=== PATIENT | female | born 1935 | race Caucasian/White ===

== ENCOUNTER 2017-12-20 21:49 | Emergency (ER) | payer OTHER ==
[~2017-12-20] VITALS: Ht 165.1 cm; Wt 93.0 kg
[~2017-12-20 21:49] MED LIST: ASPI81EC PO; ATOR10 PO; Avelox400 MG PO; CHOL10002 PO; CLON.5 PO; Calcium + Vita1 EACH PO; ENAL2.5 PO; ESOM20 PO; LEVSOD125 PO; MULVITA PO; Melatonin5 M1 PO; NEBI5 PO; Norco 5-325 Ta1 EACH PO; Pravastatin Sod40 MG PO; RABE20 PO; VITAMIN C PO; Vivelle-Dot1 EAC1 TD; Zofran Odt4 MG SL
[2017-12-20] MEDS ORDERED: Keflex500 MG PO (23:22)
== END 2017-12-21 00:37 | disposition home or self-care (01) ==
LOC: ER 21:49
DX: R04.0 Epistaxis (principal); Z88.5 Allergy status to narcotic agent; Z88.8 Allergy status to other drugs, medicaments and biological substances; Z79.899 Other long term (current) drug therapy; Z79.82 Long term (current) use of aspirin; Z79.2 Long term (current) use of antibiotics; E03.9 Hypothyroidism, unspecified; E78.00 Pure hypercholesterolemia, unspecified; F41.9 Anxiety disorder, unspecified
CPT/HCPCS: 30903; 96374; 99283; J0360

== ENCOUNTER 2018-02-13 11:28 | Day surgery (SDC) | payer OTHER ==
[~2018-02-13] VITALS: Ht 160 cm; Wt 93.9 kg
[~2018-02-13 11:28] MED LIST changes: +Keflex500 MG PO
[2018-02-13] MEDS ORDERED: RABE20 (11:48)
[2018-02-13] MEDS ORDERED: LEVSOD125 (11:49)
== END 2018-02-13 14:50 | disposition home or self-care (01) ==
LOC: ORSCSDS 11:28
PROVIDERS: Obstetrics & Gynecology Gynecology
PROC: 0UB98ZX Excision of Uterus, Via Natural or Artificial Opening Endoscopic, Diagnostic (ICD-10-PCS; principal; 2018-02-13 13:00)
PROC: 0UDB7ZX Extraction of Endometrium, Via Natural or Artificial Opening, Diagnostic (ICD-10-PCS; principal; 2018-02-13 13:00)
DX: N95.0 Postmenopausal bleeding (principal); N84.0 Polyp of corpus uteri; I10 Essential (primary) hypertension; E03.9 Hypothyroidism, unspecified; E66.01 Morbid (severe) obesity due to excess calories; Z68.36 Body mass index [BMI] 36.0-36.9, adult; Z79.899 Other long term (current) drug therapy
CPT/HCPCS: 88305; J0690; J3010; J7120

== ENCOUNTER → 2019-08-14 | Outpatient (CLI) | payer OTHER ==
[~2019-08-14] MED LIST changes: +LEVSOD125; +RABE20
[2019-08-16 16:07] LABS: HPV 16 Negative (Negative); HPV 18 Negative (Negative); HPV OTHER HR TYPES Negative (Negative)
== END ==
LOC: LAB 18:51 → LAB SHORT 18:51
PROVIDERS: Obstetrics & Gynecology Gynecology
DX: Z91.89 Other specified personal risk factors, not elsewhere classified (principal)
CPT/HCPCS: 87624; G0123

== ENCOUNTER 2019-12-16 14:04 | Emergency (ER) | payer OTHER ==
[~2019-12-16] VITALS: Ht 160 cm; Wt 91.6 kg
[2019-12-16 14:52] LABS: BASOPHILS ABSOLUTE AUTO 0.04 K/mm3 (0.00-0.23); BASOPHILS PERCENT AUTO 1 % (0-2); EOSINOPHILS ABSOLUTE AUTO 0.01 K/mm3 (0.00-0.68); EOSINOPHILS PERCENT AUTO 0 % (0-6); Hemoglobin 13.8 g/dL (11.5-16.0); IMMATURE GRAN ABSOLUTE AUTO 0.01 K/mm3 (0.00-0.10); IMMATURE GRAN PERCENT AUTO 0 % (0-1); LYMPHOCYTES ABSOLUTE AUTO 2.18 K/mm3 (0.84-5.20); LYMPHOCYTES PERCENT AUTO 31 % (21-46); MONOCYTES ABSOLUTE AUTO 0.83 K/mm3 (0.16-1.47); MONOCYTES PERCENT AUTO 12 % (4-13); Mean Corpuscular HGB 27.5 pg (26.0-34.0); Mean Corpuscular HGB Conc 32.1 g/dL (31.5-36.5); Mean Corpuscular Volume 86 fL (80-100); Mean Platelet Volume 9.9 fL (9.1-12.4); NEUTROPHILS ABSOLUTE AUTO 3.97 K/mm3 (1.96-9.15); NEUTROPHILS PERCENT AUTO 56 % (41-73); Platelet Count 237 K/mm3 (150-400); RDW Coefficient Variation 14.5 % (11.7-14.2); RDW Standard Deviation 45.6 fL (35.1-46.3); Red Blood Cell Count 5.02 M/mm3 (3.80-5.20); White Blood Cell Count 7.04 K/mm3 (4.00-11.30)
[2019-12-16 15:07] LABS: Alanine Aminotransfer (ALT/SGP 29 U/L (12-78); Albumin, Blood 3.4 g/dL (3.4-5.0); Albumin/Globulin Ratio 0.9 (0.8-1.8); Alk Phos 112 U/L (50-136); Anion Gap 4 mmol/L (6-16); Aspartate Aminotrans (AST/SGOT 41 U/L (12-37); Bilirubin, Total 0.4 mg/dL (0.1-1.0); Blood Urea Nitrogen 11 mg/dL (8-24); Bun/Creatinine Ratio 15.9 (12.0-20.0); CO2, Blood 27 mmol/L (21-32); Calcium, Blood 8.9 mg/dL (8.5-10.1); Chloride, Blood 108 mmol/L (98-108); Creatinine, Blood 0.69 mg/dL (0.40-1.00); Globulin, Blood 3.9 g/dL (2.2-4.0); Glomerular Filtration Rate >60 (60-); Glucose, Blood 108 mg/dL (70-99); Potassium, Blood 3.9 mmol/L (3.5-5.5); Sodium, Blood 139 mmol/L (136-145); Total Protein, Blood 7.3 g/dL (6.4-8.2); Troponin I <0.015 ng/mL (0.000-0.040)
== END 2019-12-16 15:35 | disposition home or self-care (01) ==
LOC: ER 14:04
PROVIDERS: Emergency Medicine
DX: M54.6 Pain in thoracic spine (principal); E03.9 Hypothyroidism, unspecified; F41.9 Anxiety disorder, unspecified; Z88.5 Allergy status to narcotic agent; Z91.018 Allergy to other foods; Z79.899 Other long term (current) drug therapy
CPT/HCPCS: 71045; 80053; 84484; 85025; 93005; 93010; 99284-25

== ENCOUNTER → 2023-02-06 | Outpatient (CLI) | payer OTHER ==
[~2023-02-06] MED LIST changes: +Acetaminophen650 M1 PO; +Aspir 8181 MG PO; +CARV3.125 PO; +DICY20 PO; +EUTHYROX125 MCG PO; +FAMO20 PO; +MELATONIN5 M1 PO; +MERIBIN5 MG PO; +METAMUCIL POWD798 GM PO
== END | disposition home or self-care (01) ==
LOC: LAB 14:51 → LAB SHORT 14:51
DX: R30.0 Dysuria (principal)
CPT/HCPCS: 87086

== ENCOUNTER → 2025-07-13 | Outpatient (CLI) | payer OTHER ==
[2025-07-14 14:33] LABS: Stool Occult Blood Guaiac 1 Neg (Neg)
[2025-07-14 14:34] LABS: Stool Occult Blood Guaiac 2 Neg (Neg)
[2025-07-14 14:35] LABS: Stool Occult Blood Guaiac 3 Neg (Neg)
== END ==
LOC: LAB SHORT 10:00 → LAB 10:00
PROVIDERS: Internal Medicine
DX: D50.9 Iron deficiency anemia, unspecified (principal)
CPT/HCPCS: 82272